=== PATIENT | female | born 1985 | race American Indian/Alaskan Native ===

== ENCOUNTER 2017-03-02 09:07 | Outpatient (CLI) | payer BC ==
--- NOTE | 2017-03-03 07:40 | Fluoroscopy Report ---
FLUOROSCOPY HYSTEROSALPINGOGRAM HISTORY: Infertility. DESCRIPTION OF PROCEDURE: Informed consent was obtained. The patient was given the opportunity to ask questions. Sterile technique was utilized. The patient was positioned on the end of the fluoroscopy table in frog-leg position. The cervix was visualized with use of a speculum. The cervix was cleaned 3 times with Betadine solution. The cervical canal was cannulated with a 5 Turkmen balloon tipped catheter. The catheter was secured by balloon inflation. Approximately 10 cc of Omnipaque-300 contrast agent was injected into the uterine cavity under fluoroscopic observation. 51 fluoroscopic images were obtained. The images demonstrate moderate wall irregularity in the region of the uterine isthmus which is presumably secondary to previous . There is a wedge shaped defect along the left lateral wall of the lower uterine segment/isthmus. There are also multiple small irregular outpouchings from the anterior and lateral cordoba of the uterine isthmus. These findings are presumably related to scarring from previous . Synechia could be considered. The endometrial cavity within the body of the uterus is normal with smooth well-defined cordoba. No evidence for synechiae or filling defect. No suggestion of congenital uterine abnormality. Both fallopian tubules are visualized and have normal morphology. There is clear spillage of contrast agent into the pelvic cavity bilaterally. The patient tolerated the procedure well with no complaints. IMPRESSION: There is moderate wall irregularity in the region of the uterine isthmus which presumably is secondary to previous . The body of the uterus is normal. Bilateral fallopian tubules are patent and have normal morphology.
== END 2017-03-02 09:08 | disposition home or self-care (01) ==
LOC: FLUORO 09:07
PROVIDERS: ATTEND Obstetrics & Gynecology
DX: N97.1 Female infertility of tubal origin (principal)
CPT/HCPCS: 58340; 74740; Q9967

== ENCOUNTER 2018-06-11 18:56 | Emergency (ER) | payer SELFPAY ==
--- NOTE | 2018-06-11 19:05 | Emergency Department Report ---
Blank Doc - Documentation Documentation: This is a 32-year-old female that presents with syncopal episode. Stated star rola with headache which leaded to nausea and vomiting and then syncopal episode. exam: A/O x3. Normal neuro exam. No one sided weakness. This initial assessment/diagnostic orders/clinical plan/treatment(s) is/are subject to change based on patient's health status, clinical progression and re- assessment by fellow clinical providers in the ED. Further treatment and workup at subsequent clinical providers discretion. Patient/guardians urged not to elope from the ED as their condition may be serious if not clinically assessed and managed. Initial orders include: 1- Patient sent to MAIN ED for further evaluation and treatment 2- labs 3- CT head 4- EKG
[2018-06-11 19:06] VITALS: BP 116/64
[2018-06-11 19:33] LABS: Basophils # (Auto) 0.1 K/mm3 (0.0-0.1); Basophils % (Auto) 0.7 % (0.0-1.8); Eosinophils # (Auto) 0.2 K/mm3 (0.0-0.4); Eosinophils % (Auto) 1.8 % (0.0-4.3); Hematocrit 37.4 % (30.3-42.9); Hemoglobin 12.6 gm/dl (10.1-14.3); Lymphocytes % (Auto) 29.6 % (13.4-35.0); Mean Corpuscular HGB Conc 34 % (30-34); Mean Corpuscular Volume 93 fl (79-97); Monocytes # (Auto) 0.8 K/mm3 (0.0-0.8); Monocytes % (Auto) 7.9 % (0.0-7.3); Platelet Count 245 K/mm3 (140-440); Red Blood Count 4.03 M/mm3 (3.65-5.03); Red Cell Distribution Width 13.8 % (13.2-15.2)
[2018-06-11 19:58] LABS: Albumin 4.7 g/dL (3.9-5); BUN/Creatinine Ratio 10; Blood Urea Nitrogen 7 mg/dL (7-17); Calcium 9.6 mg/dL (8.4-10.2); Hemolysis Index 91
[2018-06-11] MEDS ORDERED: TYLENOL ONE (19:59)
[2018-06-11] MEDS ORDERED: TYLENOL PO ONE ×2 (19:59→20:00)
[2018-06-11 20:11] LABS: Alanine Aminotransferase 10 units/L (7-56); Bilirubin,Direct < 0.2 mg/dL (0-0.2)
== END 2018-06-11 20:11 | disposition left against medical advice (07) ==
LOC: ED 18:56
DX: R11.10 Vomiting, unspecified (principal); R55 Syncope and collapse; Z53.21 Procedure and treatment not carried out due to patient leaving prior to being seen by health care provider
CPT/HCPCS: 36415; 80048; 80076; 82962; 84484; 84703; 85025; 93005; 93010

== ENCOUNTER 2019-02-09 17:35 | Emergency (ER) | payer OTHER ==
[2019-02-09] MEDS ORDERED: ACETAMINOPHEN 500 MG TAB PO ONE (18:36)
--- NOTE | 2019-02-09 19:09 | Emergency Department Report ---
ED Lower Extremity HPI - General Chief Complaint: Extremity Injury, Lower Stated Complaint: LEFT KNEE PAIN Time Seen by Provider: 02/09/19 18:35 Source: patient Mode of arrival: Wheelchair Limitations: No Limitations - History of Present Illness Initial Comments: pt is a 33 y/o aaf who presents for left anterior knee pain s/p knee versus bedpost at home. pt describes pain as 5/10 aching and tingling, pt is non weight bearing, There is no abrasion , laceration, or bleeding. MD Complaint: knee injury Onset/Timin -: hour(s) Injury: Knee: Left Type of Injury: blunt, hyperextension Place: home Severity: moderate Severity scale (0 -10): 5 Worsens With: weight bearing, movement, palpation Context: direct blow Associated Symptoms: tingling - Related Data Previous Rx's Medication Instructions Recorded Last Taken Type ALBUTEROL Inhaler (OR & NICU) 2 puff IH QID PRN #1 inhalation 10/27/13 Unknown Rx [ProAir HFA Inhaler] Azithromycin [Zithromax] 500 mg PO QDAY #3 tablet 10/27/13 Unknown Rx Cyclobenzaprine [Flexeril] 10 mg PO BID PRN #20 tablet 02/09/19 Unknown Rx Menthol/Camphor [[place] 1 applicatio TP QID PRN #1 tube 02/09/19 Unknown Rx Ointment] Naproxen [Naprosyn] 500 mg PO BID PRN #30 tablet 02/09/19 Unknown Rx Allergies Allergy/AdvReac Type Severity Reaction Status Date / Time No Known Allergies Allergy Verified 06/26/13 10:13 ED Review of Systems ROS: Stated complaint: LEFT KNEE PAIN Other details as noted in HPI Constitutional: denies: chills, fever Eyes: denies: eye pain, eye discharge, vision change ENT: denies: ear pain, throat pain Respiratory: denies: cough, shortness of breath, wheezing Cardiovascular: denies: chest pain, palpitations Endocrine: no symptoms reported Gastrointestinal: denies: abdominal pain, nausea, diarrhea Genitourinary: denies: urgency, dysuria, discharge Musculoskeletal: other (left knee pain ). denies: back pain, joint swelling, arthralgia Skin: denies: rash, lesions Neurological: denies: headache, weakness, paresthesias Psychiatric: denies: anxiety, depression Hematological/Lymphatic: as per HPI ED Past Medical Hx - Past Medical History Hx Asthma: Yes - Surgical History Additional Surgical History: uteral prolapse as a child, C/S - Social History Smoking Status: Never Smoker Substance Use Type: None - Medications Home Medications: Home Medications Medication Instructions Recorded Confirmed Last Taken Type ALBUTEROL Inhaler (OR & NICU) 2 puff IH QID PRN #1 inhalation 10/27/13 Unknown Rx [ProAir HFA Inhaler] Azithromycin [Zithromax] 500 mg PO QDAY #3 tablet 10/27/13 Unknown Rx Cyclobenzaprine [Flexeril] 10 mg PO BID PRN #20 tablet 02/09/19 Unknown Rx Menthol/Camphor [[place] 1 applicatio TP QID PRN #1 tube 02/09/19 Unknown Rx Ointment] Naproxen [Naprosyn] 500 mg PO BID PRN #30 tablet 02/09/19 Unknown Rx ED Physical Exam - General Limitations: No Limitations General appearance: alert, in no apparent distress - Head Head exam: Present: atraumatic, normocephalic - Eye Eye exam: Present: normal appearance - ENT ENT exam: Present: mucous membranes moist - Neck Neck exam: Present: normal inspection - Respiratory Respiratory exam: Present: normal lung sounds bilaterally. Absent: respiratory distress - Cardiovascular Cardiovascular Exam: Present: regular rate, normal rhythm, normal heart sounds. Absent: systolic murmur, diastolic murmur, rubs, gallop - GI/Abdominal GI/Abdominal exam: Present: soft, normal bowel sounds - Rectal Rectal exam: Present: deferred - Extremities Exam Extremities exam: Present: normal inspection, tenderness. Absent: pedal edema, calf tenderness - Expanded Lower Extremity Exam Left Knee exam: Present: tenderness, pain w/ pronation/supination, pain/laxity with valgus, pain/laxity with varus. Absent: abrasion, laceration, ecchymosis, deformity, crepidus, dislocation, erythema, effusion, posterior draw sign Lower Leg exam: Present: full ROM. Absent: tenderness, swelling Ankle exam: Present: full ROM. Absent: tenderness, swelling Foot/Toe exam: Present: full ROM. Absent: tenderness, swelling Neuro vascular tendon exam: Absent: pulse deficit, motor deficit, sensory deficit, tendon deficit Gait: Positive: unable to bear weight - Back Exam Back exam: Present: normal inspection, full ROM. Absent: tenderness, vertebral tenderness - Neurological Exam Neurological exam: Present: alert, oriented X3, CN II-XII intact, abnormal gait, reflexes normal. Absent: motor sensory deficit - Psychiatric Psychiatric exam: Present: normal affect, normal mood - Skin Skin exam: Present: warm, dry, intact, normal color. Absent: rash ED Course Vital Signs 02/09/19 17:45 Temperature 98.3 F Pulse Rate 60 Respiratory 16 Rate Blood Pressure 117/57 O2 Sat by Pulse 100 Oximetry ED Lower Extremity MDM - Lab Data Labs 02/09/19 18:45 HCG, Quant < 2 - Radiology Data Radiology results: report reviewed, image reviewed Ordering Physician: MARGUERITE GARCIA NP Date of Service: 02/09/19 Procedure(s): XR knee 3V LT Accession Number(s): [id number] cc: MARGUERITE GARCIA NP Fluoro Time In Minutes: LEFT KNEE 4 VIEWS INDICATION / CLINICAL INFORMATION: knee pain s/p fall. COMPARISON: None available. FINDINGS: No fracture, dislocation or left knee effusion is present. Mild degenerative arthrosis is seen within the patellofemoral joint. Signer Name: Huber Jaime MD Signed: 02/09/2019 7:49 PM Workstation Name: [id number] Transcribed By: TL Dictated By: Huber Jaime MD Electronically Authenticated By: Huber Jaime MD Signed Date/Time: 02/09/191948 DD/ 48 TD/TT: - Medical Decision Making Xrays negative for fracture, plan: domingo wrap, crutches, nsaids, analgesic balm, follow up with orthopedics in 2-3 days. Critical care attestation.: If time is entered above; I have spent that time in minutes in the direct care of this critically ill patient, excluding procedure time. ED Disposition Clinical Impression: Knee sprain Qualifiers: Encounter type: initial encounter Involved ligament of knee: unspecified ligament Laterality: left Qualified Code(s): S83.92XA - Sprain of unspecified site of left knee, initial encounter Disposition: TO HOME OR SELFCARE Is pt being admited?: No Does the pt Need Aspirin: No Condition: Stable Instructions: Knee Sprain (ED), Knee Exercises (GEN), Crutch Instructions (ED) Prescriptions: Cyclobenzaprine [Flexeril] 10 mg PO BID PRN #20 tablet PRN Reason: Muscle Spasm Naproxen [Naprosyn] 500 mg PO BID PRN #30 tablet PRN Reason: pain Menthol/Camphor [[place] Ointment] 1 applicatio TP QID PRN #1 tube PRN Reason: pain Referrals: PRIMARY CARE, [Primary Care Provider] - 3-5 Days Forms: Work/School Release Form(ED) Time of Disposition: 20:18
[2019-02-09] MEDS ORDERED: HYDROcodone/ACETAMINOPHEN 5-325 MG TAB PO ONE (19:51)
--- NOTE | 2019-02-09 19:53 | XRay Report ---
LEFT KNEE 4 VIEWS INDICATION / CLINICAL INFORMATION: knee pain s/p fall. COMPARISON: None available. FINDINGS: No fracture, dislocation or left knee effusion is present. Mild degenerative arthrosis is seen within the patellofemoral joint. Signer Name: Huber Jaime MD Signed: 02/09/2019 7:49 PM Workstation Name: [id number]
[2019-02-09 22:21] VITALS: BP 121/64
== END 2019-02-09 20:30 | disposition home or self-care (01) ==
LOC: ED 17:35
DX: S83.92XA Sprain of unspecified site of left knee, initial encounter (principal); J45.909 Unspecified asthma, uncomplicated; Z98.890 Other specified postprocedural states; Z79.899 Other long term (current) drug therapy
CPT/HCPCS: 36415; 84702

== ENCOUNTER 2020-04-29 11:23 | Emergency (ER) | payer OTHER ==
[2020-04-29 11:41] VITALS: BP 109/63
--- NOTE | 2020-04-29 11:44 | Emergency Department Report ---
ED Lower Extremity HPI - General Chief Complaint: Extremity Injury, Lower Stated Complaint: LEFT KNEE SWELLING AND PAIN Time Seen by Provider: 04/29/20 11:43 Source: patient Mode of arrival: Ambulatory Limitations: No Limitations - History of Present Illness Initial Comments: Patient is a pleasant 34-year-old -[place] female that comes in today with left knee pain swelling. She has no new fall or trauma. Patient reports a history of injuring the knee over a year ago. 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 She has noticed over the past couple weeks and increasing swelling is and what she describes as a popping when she palpates the knee. Distal DP +2 and no swelling distally. Rapid cap refill. Ankle within normal limits hip within normal limits MD Complaint: knee injury -: Gradual Severity: moderate Improves With: nothing Worsens With: movement Context: other - Related Data Previous Rx's Medication Instructions Recorded Last Taken Type Albuterol Mdi (or & Nicu Only) 2 puff IH QID PRN #1 inhalation 10/27/13 Unknown Rx [ProAir HFA Inhaler] Azithromycin [Zithromax] 500 mg PO QDAY #3 tablet 10/27/13 Unknown Rx Cyclobenzaprine [Flexeril] 10 mg PO BID PRN #20 tablet 02/09/19 Unknown Rx Menthol/Camphor [[place] 1 applicatio TP QID PRN #1 tube 02/09/19 Unknown Rx Ointment] Naproxen [Naprosyn] 500 mg PO BID PRN #30 tablet 02/09/19 Unknown Rx Allergies Allergy/AdvReac Type Severity Reaction Status Date / Time No Known Allergies Allergy Verified 06/26/13 10:13 ED Review of Systems ROS: Stated complaint: LEFT KNEE SWELLING AND PAIN Other details as noted in HPI Comment: All other systems reviewed and negative ED Past Medical Hx - Past Medical History Previous Medical History?: Yes Hx Asthma: Yes Additional medical history: DISLOCATED LEFT KNEE 2018 - Surgical History Past Surgical History?: Yes Additional Surgical History: uteral prolapse as a child, C/S - Family History Family history: no significant - Social History Smoking Status: Never Smoker Substance Use Type: None - Medications Home Medications: Home Medications Medication Instructions Recorded Confirmed Last Taken Type Albuterol Mdi (or & Nicu Only) 2 puff IH QID PRN #1 inhalation 10/27/13 Unknown Rx [ProAir HFA Inhaler] Azithromycin [Zithromax] 500 mg PO QDAY #3 tablet 10/27/13 Unknown Rx Cyclobenzaprine [Flexeril] 10 mg PO BID PRN #20 tablet 02/09/19 Unknown Rx Menthol/Camphor [[place] 1 applicatio TP QID PRN #1 tube 02/09/19 Unknown Rx Ointment] Naproxen [Naprosyn] 500 mg PO BID PRN #30 tablet 02/09/19 Unknown Rx ED Physical Exam - General Limitations: No Limitations General appearance: alert, in no apparent distress - Head Head exam: Present: atraumatic, normocephalic - Eye Eye exam: Present: normal appearance - ENT ENT exam: Present: mucous membranes moist - Neck Neck exam: Present: normal inspection - Respiratory Respiratory exam: Present: normal lung sounds bilaterally. Absent: respiratory distress - Cardiovascular Cardiovascular Exam: Present: regular rate, normal rhythm. Absent: systolic murmur, diastolic murmur, rubs, gallop - GI/Abdominal GI/Abdominal exam: Present: soft, normal bowel sounds - Extremities Exam Extremities exam: Present: normal inspection - Expanded Lower Extremity Exam Left Knee exam: Present: swelling, effusion - Back Exam Back exam: Present: normal inspection - Neurological Exam Neurological exam: Present: alert, oriented X3 - Psychiatric Psychiatric exam: Present: normal affect, normal mood - Skin Skin exam: Present: warm, dry, intact, normal color. Absent: rash ED Course Vital Signs 04/29/20 11:38 Temperature 97 F L Pulse Rate 73 Respiratory 18 Rate Blood Pressure 109/63 O2 Sat by Pulse 97 Oximetry ED Lower Extremity MDM - Medical Decision Making yoan/crutches RICE therapy Patient being discharged with Yoan and crutches for comfort/RICE care. She understands that she needs to see orthopedics for follow-up. Patient will use [id number] Motrin and Tylenol for any pain or discomfort. Patient verbalizes understanding of discharge plan of care Vital Signs 04/29/20 11:38 Temperature 97 F L Pulse Rate 73 Respiratory 18 Rate Blood Pressure 109/63 O2 Sat by Pulse 97 Oximetry - Differential Diagnosis KNEE EFFUSION Critical care attestation.: If time is entered above; I have spent that time in minutes in the direct care of this critically ill patient, excluding procedure time. ED Disposition Clinical Impression: Knee effusion, Chronic knee pain Disposition: DC-01 TO HOME OR SELFCARE Is pt being admited?: No Does the pt Need Aspirin: No Condition: Stable Instructions: Knee Effusion Additional Instructions: CRUTCHES AND YOAN FOR COMFORT NON WEIGHT BEARING TO REST THE KNEE MOTRIN OR TYLENOL FOR PAIN FOLLOW UP WITH ORTHO SHERYL REFERRAL BELOW Referrals: MARIA ISABEL WASHINGTON MD [Staff Physician] - 3-5 Days Forms: Work/School Release Form(ED) Time of Disposition: 11:44
== END 2020-04-29 12:56 | disposition home or self-care (01) ==
LOC: ED 11:23
DX: M25.462 Effusion, left knee (principal); G89.29 Other chronic pain; J45.909 Unspecified asthma, uncomplicated; Z79.899 Other long term (current) drug therapy
CPT/HCPCS: 99283